=== PATIENT | female | born 1965 | race Caucasian/White ===

== ENCOUNTER 2016-10-22 20:13 | Emergency (ER) | payer OTHER ==
[~2016-10-22 20:13] MED LIST: CEPACOL SORE TH1 LO3 MM; LEVOTHYROXINE0.05 M2 PO; NORCO1 TA2 PO; SYNTHROID0.05 MG PO
[2016-10-22 22:20] LABS: BASOPHIL % 0.9 % (0-2); PLATELET COUNT 287 x10^3mcL (130-400); RED CELL DISTRIBUTION WIDTH 14.4 % (11.5-14.5)
[2016-10-22 22:29] LABS: CALCIUM 8.6 mg/dL (8.5-10.1); CARBON DIOXIDE 27.2 mmol/L (21-32); CHLORIDE SERUM 104 mmol/L (98-107); CREATININE SERUM 0.7 mg/dL (0.6-1.0); GFR1 > 60 mL/min; GLUCOSE SERUM 112 mg/dL (74-106); POTASSIUM SERUM 3.5 mmol/L (3.5-5.1); SODIUM SERUM 138 mmol/L (136-145)
[2016-10-22 22:34] LABS: ALBUMIN 3.4 g/dL (3.4-5.0); ALKALINE PHOSPHATASE 118 U/L (46-116); ALT/SGPT 27 U/L (14-59); AST/SGOT 20 U/L (15-37); BILIRUBIN TOTAL 0.1 mg/dL (0.20-1.00); TOTAL PROTEIN, SERUM 6.6 g/dL (6.4-8.2); URIC ACID 2.7 mg/dL (2.6-6.0)
[2016-10-23 00:18] VITALS: BP 110/59
== END 2016-10-23 00:18 | disposition home or self-care (01) ==
LOC: ED 20:13
PROVIDERS: Emergency Medicine
DX: M25.572 Pain in left ankle and joints of left foot (principal); E03.9 Hypothyroidism, unspecified; Z88.5 Allergy status to narcotic agent
CPT/HCPCS: 36415; J1885

== ENCOUNTER 2017-07-14 12:21 | Emergency (ER) | payer OTHER ==
[~2017-07-14] VITALS: Ht 162.6 cm; Wt 87.5 kg
[2017-07-14 12:37] VITALS: BP 169/87; Ht 162.6 cm; Wt 87.5 kg
== END 2017-07-14 14:52 | disposition left against medical advice (07) ==
LOC: ED 12:21
DX: Z53.21 Procedure and treatment not carried out due to patient leaving prior to being seen by health care provider (principal)

== ENCOUNTER 2017-09-27 11:28 | Emergency (ER) | payer OTHER ==
[~2017-09-27] VITALS: Ht 162.6 cm; Wt 85.3 kg
[2017-09-27 11:41] VITALS: Ht 162.6 cm; Wt 85.3 kg
[2017-09-27 14:04] LABS: BASOPHIL % 0.5 % (0-2); PLATELET COUNT 300 x10^3mcL (130-400); RED CELL DISTRIBUTION WIDTH 12.7 % (11.5-14.5)
[2017-09-27 14:18] LABS: CALCIUM 9.3 mg/dL (8.5-10.1); CARBON DIOXIDE 26.9 mmol/L (21-32); CHLORIDE SERUM 107 mmol/L (98-107); CREATININE SERUM 0.5 mg/dL (0.6-1.0); GFR1 > 60 mL/min; GLUCOSE SERUM 85 mg/dL (74-106); POTASSIUM SERUM 3.8 mmol/L (3.5-5.1); SODIUM SERUM 144 mmol/L (136-145)
[2017-09-27 14:22] LABS: ALBUMIN 3.6 g/dL (3.4-5.0); ALKALINE PHOSPHATASE 167 U/L (46-116); ALT/SGPT 48 U/L (14-59); AST/SGOT 29 U/L (15-37); TOTAL PROTEIN, SERUM 7.1 g/dL (6.4-8.2)
[2017-09-27 14:30] LABS: FREE T4 2.35 ng/dL (0.76-1.46)
[2017-09-27 14:49] LABS: T3 TOTAL 2.16 ng/mL
[2017-09-27 14:54] LABS: FREE THYROXINE INDEX 6.2 ug/dL (1.4-4.5); T4(THYROXINE) 14.7 ug/dL (4.7-13.3)
[2017-09-27 14:58] LABS: ERYTHROCYTE SED RATE 17 mm/hr (0-30)
[2017-09-27 15:27] VITALS: BP 122/70
== END 2017-09-27 15:28 | disposition home or self-care (01) ==
LOC: ED 11:28
PROVIDERS: Emergency Medicine
DX: G44.209 Tension-type headache, unspecified, not intractable (principal); E07.9 Disorder of thyroid, unspecified; Z88.5 Allergy status to narcotic agent; Z88.8 Allergy status to other drugs, medicaments and biological substances
CPT/HCPCS: 84439; J1885

== ENCOUNTER 2018-08-14 16:12 | Emergency (ER) | payer OTHER ==
[~2018-08-14] VITALS: Ht 162.6 cm; Wt 87.5 kg
[2018-08-14 16:16] VITALS: Ht 162.6 cm; Wt 87.5 kg
[2018-08-14 17:25] VITALS: BP 135/78
== END 2018-08-14 17:25 | disposition home or self-care (01) ==
LOC: ED 16:12
DX: J11.1 Influenza due to unidentified influenza virus with other respiratory manifestations (principal); Z88.8 Allergy status to other drugs, medicaments and biological substances; Z88.5 Allergy status to narcotic agent
CPT/HCPCS: Q0092

== ENCOUNTER 2019-01-10 15:52 | Emergency (ER) | payer OTHER ==
[~2019-01-10] VITALS: Ht 162.6 cm; Wt 87.5 kg
[2019-01-10 15:59] VITALS: Ht 162.6 cm; Wt 87.5 kg
[2019-01-10 18:05] LABS: CALCIUM 8.7 mg/dL (8.5-10.1); CHLORIDE SERUM 106 mmol/L (98-107); CREATININE SERUM 0.7 mg/dL (0.6-1.0); GFR1 > 60 mL/min; GLUCOSE SERUM 100 mg/dL (74-106); POTASSIUM SERUM 3.9 mmol/L (3.5-5.1); SODIUM SERUM 143 mmol/L (136-145)
[2019-01-10 18:06] LABS: BASOPHIL % 1.2 % (0-2); PLATELET COUNT 256 x10^3mcL (130-400)
[2019-01-10 18:10] LABS: ALBUMIN 3.4 g/dL (3.4-5.0); ALKALINE PHOSPHATASE 133 U/L (46-116); ALT/SGPT 20 U/L (14-59); AST/SGOT 22 U/L (15-37); BILIRUBIN TOTAL 0.19 mg/dL (0.20-1.00); LIPASE 234 IU/L (73-393); TOTAL PROTEIN, SERUM 6.8 g/dL (6.4-8.2)
[2019-01-10 20:34] VITALS: BP 102/65
[2019-01-10 21:11] LABS: microscopic required? NO
[2019-01-10 21:32] LABS: urine erythrocyte NEGATIVE (NEGATIVE)
== END 2019-01-10 20:33 | disposition home or self-care (01) ==
LOC: ED 15:52
PROVIDERS: Specialist
DX: R10.819 Abdominal tenderness, unspecified site (principal); R30.0 Dysuria; R53.1 Weakness; M79.10 Myalgia, unspecified site; Z90.89 Acquired absence of other organs; Z87.442 Personal history of urinary calculi; Z88.5 Allergy status to narcotic agent; Z88.8 Allergy status to other drugs, medicaments and biological substances
CPT/HCPCS: J1885; J2405; J3010; J7030

== ENCOUNTER 2019-04-06 16:08 | Emergency (ER) | payer OTHER ==
[~2019-04-06] VITALS: Ht 162.6 cm; Wt 86.6 kg
[2019-04-06 16:19] VITALS: Ht 162.6 cm; Wt 86.6 kg
[2019-04-06 21:00] VITALS: BP 118/89
== END 2019-04-06 21:08 | disposition home or self-care (01) ==
LOC: ED 16:08
DX: R30.0 Dysuria (principal); R39.15 Urgency of urination; Z88.8 Allergy status to other drugs, medicaments and biological substances; Z88.5 Allergy status to narcotic agent
CPT/HCPCS: J1885

== ENCOUNTER 2020-02-16 17:04 | Emergency (ER) | payer OTHER ==
[~2020-02-16] VITALS: Ht 162.6 cm; Wt 88.9 kg
[2020-02-16 17:13] VITALS: Ht 162.6 cm; Wt 88.9 kg
[2020-02-16 17:54] LABS: BASOPHIL % 0.3 % (0-2); PLATELET COUNT 273 x10^3mcL (130-400)
[2020-02-16 18:09] LABS: CALCIUM 8.7 mg/dL (8.5-10.1); CHLORIDE SERUM 101 mmol/L (98-107); CREATININE SERUM 0.8 mg/dL (0.6-1.0); GFR1 > 60 mL/min; GLUCOSE SERUM 113 mg/dL (74-106); POTASSIUM SERUM 3.6 mmol/L (3.5-5.1); SODIUM SERUM 138 mmol/L (136-145)
[2020-02-16 18:13] LABS: ALBUMIN 4.1 g/dL (3.4-5.0); ALKALINE PHOSPHATASE 133 U/L (46-116); ALT/SGPT 30 U/L (14-59); AST/SGOT 23 U/L (15-37); BILIRUBIN TOTAL 0.35 mg/dL (0.20-1.00); TOTAL PROTEIN, SERUM 7.7 g/dL (6.4-8.2)
[2020-02-16 19:24] VITALS: BP 106/57
== END 2020-02-16 19:24 | disposition home or self-care (01) ==
LOC: ED 17:04
PROVIDERS: Emergency Medicine
DX: R11.2 Nausea with vomiting, unspecified (principal); R19.7 Diarrhea, unspecified; E86.0 Dehydration; R10.9 Unspecified abdominal pain; Z88.5 Allergy status to narcotic agent; Z88.8 Allergy status to other drugs, medicaments and biological substances; Z98.890 Other specified postprocedural states; Z90.89 Acquired absence of other organs
CPT/HCPCS: J2405; J7030